=== PATIENT | female | born 1940 | race Caucasian/White ===

== ENCOUNTER 2016-11-03 13:17 | Day surgery (SDC) | payer MEDICARE ==
[2016-11-03 13:35] VITALS: PULSE 68; RESP 20; TEMP 97.7
[2016-11-03 15:40] VITALS: BP 120/57
--- NOTE | 2016-11-07 12:29 | IR ---
PICC LINE PLACEMENT: HISTORY: Infection requiring long-term antibiotic therapy PROCEDURE: Ultrasound and fluoroscopic guidance of PICC line placement. COMPLICATIONS: None ANESTHESIA: 1. 1% Lidocaine locally. FINDINGS/TECHNIQUE: The procedure was explained to the patient. The risks, complications, benefits and alternatives were discussed and any questions were answered. Informed consent was obtained. The patient was placed supine on the fluoroscopic table and prepped and draped in the usual sterile [facility] ion. Utilizing a 21 gauge needle and sonographic and fluoroscopic guidance, access in the vein was achieved and there is placement of a 0.018 guidewire. The vein is patent. A 4-F sheath was placed o juana the guidewire. The guidewire and dilator were removed and a 4-F. PICC line was placed through th e sheath with the tip at the level of the SVC. The sheath was removed, the catheter was flushed and sutured into position. The patient was stable throughout the procedure and remained stable upon disc harge from the Department of Radiology. The vein puncture was patent under ultrasound. A obrien scale image was obtained to document patency of the vein punctured. All elements of the maximal barrier technique were utilized. FLUOROSCOPY TIME: 0.3 minute IMPRESSION: Successful PICC line placement under ultrasound and fluoroscopic guidance.
== END 2016-11-03 14:45 | disposition home or self-care (01) ==
LOC: EDSEX 13:17 → CATHCVL 13:17
PROVIDERS: ATTEND Radiology Diagnostic Radiology
DX: A35 Other tetanus (principal)
CPT/HCPCS: 36569; 76937; 77001; C1751; C1769

== ENCOUNTER → 2017-01-25 | Outpatient (CLI) | payer MEDICARE ==
[2017-01-25 14:35] LABS: Appearance,Urine Clear (Clear); Bacteria,Urine Rare /hpf; Bilirubin,Urine Negative (Negative); Glucose,Urine (UA) Negative (Negative); Ketones,Urine Negative (Negative); Leukocyte Esterase,Urine Moderate (Negative); Mucus,Urine Rare /hpf; Nitrite,Urine Negative (Negative); PH, Urine 5.5 (5.0-8.0); Particle Count 1288; Protein,Urine Negative (Negative); RBC,Urine 1 /hpf (0-5); Specific Gravity,Urine 1.011 (1.001-1.035); Squamous Epithelial Cell,Urine 2 /hpf (0-4); UA Billing (MACRO vs. MICRO) MICRO; Urobilinogen,Urine <2.0 mg/dL (<2.0); WBC,Urine 6 /hpf (0-5)
[2017-01-25 14:47] LABS: CH 28.2; CHCM 34.6; HDW 2.82; HGB 15.1 gm/dL (11.4-16.0); MCH 28.7 pg (25.0-35.0); MCHC 35.1 g/dL (31.0-37.0); MCV 81.9 fL (80.0-100.0); Mean Platelet Volume 6.4; RBC 5.25 m/uL (3.80-5.40); RDW 13.7 % (11.5-15.5); WBC 9.2 k/uL (3.8-10.6)
[2017-01-25 14:50] LABS: INR 1.1 (<1.1); Partial Thromboplastin Time 22.8 sec (22.0-30.0); Prothrombin Time 10.6 sec (9.0-12.0)
[2017-01-25 14:55] LABS: ALT 44 U/L (9-52); AST 48 U/L (14-36); Alkaline Phosphatase 99 U/L (38-126); Anion Gap 10 mmol/L; Blood Urea Nitrogen 27 mg/dL (7-17); Calcium 10.4 mg/dL (8.4-10.2); Carbon Dioxide 25 mmol/L (22-30); Chloride 106 mmol/L (98-107); Glucose 90 mg/dL (74-99); Non-African American GFR(MDRD) >60 (>60 ml/min/1.73 sqM); Potassium 4.3 mmol/L (3.5-5.1); Sodium 141 mmol/L (137-145); Total Bilirubin 0.9 mg/dL (0.2-1.3); Total Protein 7.5 g/dL (6.3-8.2)
== END | disposition home or self-care (01) ==
LOC: LABPAT 14:00
PROVIDERS: ATTEND Orthopaedic Surgery
DX: Z01.812 Encounter for preprocedural laboratory examination (principal)
CPT/HCPCS: 80053; 81001; 85027; 85610; 85730; 87070

== ENCOUNTER 2017-02-14 06:41 | Inpatient (IN) | payer MEDICARE ==
[2017-02-13 08:38] VITALS: BMI 34.6
[~2017-02-14 06:41] MED LIST: ACETAMINOPHEN TAB 500 MG TAB PO ONE; DEXAMETHASONE SOD PHOSPHATE 10 MG/ML 1 ML VIAL IV ONE; HYDROmorphone 1 MG/ML 1 ML SYRINGE IVP PRN; MELOXICAM 7.5 MG TAB PO ONE; MIDAZOLAM 2 MG/2 ML VIAL IV PRN; ONDANSETRON 4 MG/2 ML VIAL IVP ONE; ROPIVACAINE 246.25 MG, EPINEPHrine 0.5 MG, KETOROLAC 30 MG, cloNIDine HCL/PF 80 MCG, WA... MISCELLANE ONE; TRANEXAMIC ACID 1,000 MG in SODIUM CHLORIDE 0.9% 100 ML IVPB ONE
[2017-02-14] MEDS: LACTATED RINGERS 1,000 ML IV SCH (07:12)
[2017-02-14] MEDS ORDERED: LIDOCAINE 1% 20 ML VIAL (10MG/ML) FOR IV START INTRADERMA ONE (07:13)
[2017-02-14] MEDS ORDERED: MIDAZOLAM 2 MG/2 ML VIAL IVP ONE (08:11)
[2017-02-14] MEDS ORDERED: fentaNYL (PF) 50 MCG/ML 2 ML AMP ONE (08:46)
[2017-02-14] MEDS: ceFAZolin 2 GM in SODIUM CHLORIDE 0.9% 100 ML IVPB ONE ×2 (08:46→09:05)
[2017-02-14] MEDS ORDERED: HYDROmorphone (PF) 1 MG/ML ONE (08:46)
[2017-02-14] MEDS ORDERED: PROPOFOL 10 MG/ML 20 ML VIAL IV ONE (08:46)
[2017-02-14] MEDS ORDERED: SODIUM CHLORIDE 0.9% 100 ML BAG ONE (08:46)
[2017-02-14] MEDS ORDERED: SUCCINYLCHOLINE CHLORIDE 100 MG/5 ML SYR IV ONE (08:46)
[2017-02-14] MEDS ORDERED: TRANEXAMIC ACID 1,000 MG/10 ML VIAL ONE (08:46)
[2017-02-14] MEDS ORDERED: LIDOCAINE 1% INJ 10MG/ML (20 ML MDV) ONE (08:46)
[2017-02-14] MEDS ORDERED: MIDAZOLAM 2 MG/2 ML VIAL ONE (08:46)
[2017-02-14] MEDS ORDERED: hydrOXYzine PAMOATE 25 MG CAP PO PRN (08:58)
[2017-02-14] MEDS ORDERED: DIAZEPAM 5 MG TAB PO PRN ×2 (08:58)
[2017-02-14] MEDS ORDERED: ONDANSETRON 4 MG/2 ML VIAL IVP PRN (08:58)
[2017-02-14] MEDS ORDERED: HYDROmorphone 1 MG/ML 1 ML SYRINGE IVP PRN ×3 (08:58)
[2017-02-14] MEDS ORDERED: NA PHOS,M-B/NA PHOS,DI-BA 133 ML ENEMA RECTAL PRN (08:58)
[2017-02-14] MEDS ORDERED: NALOXONE 0.4 MG/ML 1 ML VIAL IV PRN (08:58)
[2017-02-14] MEDS ORDERED: MAGNESIUM HYDROXIDE 2,400 MG/10 ML CUP PO PRN (08:58)
[2017-02-14] MEDS ORDERED: BISACODYL 10 MG SUPP RECTAL PRN (08:58)
[2017-02-14] MEDS ORDERED: HYDROcodone/APAP 5-325MG 1 EACH TAB PO PRN (08:58)
[2017-02-14] MEDS ORDERED: LACTATED RINGERS 1,000 ML IV ONE (09:31)
[2017-02-14] MEDS ORDERED: ceFAZolin 3,000 MG in SODIUM CHLORIDE 0.9% IRRIGATIO 3,000 ML IRRIGATION ONE (09:44)
[2017-02-14] MEDS ORDERED: ROPIVACAINE 1,100 MG, SODIUM CHLORIDE 0.9% 330 ML MISCELLANE PRN ×2 (11:18)
--- NOTE | 2017-02-14 11:26 | XR ---
EXAMINATION TYPE: XR knee limited LT DATE OF EXAM: 02/14/2017 11:15 AM COMPARISON: NONE TECHNIQUE: Two views submitted HISTORY: Post op FINDINGS: There is a prosthetic knee in near anatomic alignment. There is soft tissue edema and emphysema. IMPRESSION: 1. Postoperative change. Appears in near-anatomic alignment
[2017-02-14 11:46] VITALS: RESP 16
[2017-02-14] MEDS: SODIUM CHLORIDE 0.9% 1,000 ML IV SCH (13:06)
--- NOTE | 2017-02-14 15:06 | P.OP ---
Date of Procedure: 02/14/17 Preoperative Diagnosis: Severe osteoarthritis left knee Postoperative Diagnosis: Severe osteoarthritis left knee Procedure(s) Performed: Left total knee arthroplasty Implants: Morton and Nephew Oxinium femoral component size 6, left Morton & Nephew Karla II left nonporous tibial baseplate size 5 Morton & Nephew size 9 mm Legion XLPE dished articular insert, size 5-6 Morton & Nephew Karla II resurfacing patellar component, 32 mm All components were cemented using Misael bone cement.. The articulation is ceramic on polyethylene. Anesthesia: GETA Surgeon: Mohinder Jung Medical Records Supervisor #1: Arielle Brambila Medical Records Supervisor #2: Bridgett Trujillo Estimated Blood Loss (ml): 50 Pathology: other (Bone and cartilage) Condition: stable Disposition: PACU Indications for Procedure: After failure of conservative treatment we discussed the surgical and nonsurgical treatment options at length. Patient wishes to proceed with a total knee arthroplasty. Complications specific to this procedure were discussed at length, including but not limited to infection, bleeding, stiffness , and nerve injury. Patient is aware of all these complications and informed consent was obtained Operative Findings: The operative findings are consistent with severe osteoarthritis of the left knee Description of Procedure: Patient was seen in the preoperative area consent was reviewed and operative site was marked with a skin marker. An adductor canal pain catheter was placed by anesthesia in the preoperative area. Patient was then brought to the operating room and given preoperative antibiotics intravenously. A spinal anesthetic was administered by the anesthesia department. A tourniquet was placed on the upper thigh and the lower extremity was prepped and draped in usual sterile fashion. A gram of transexamic acid was given. A universal timeout was then performed which confirmed the patient's name, surgical site, ALLERGIES, and consent. The lower extremity was then exsanguinated and tourniquet was inflated to 250 mmHg. A standard and anterior midline approach to the knee was performed. The skin and subcutaneous tissue was dissected down to the patellar tendon. A medial parapatellar arthrotomy was then performed. The knee was then extended, the patellar was everted, and the knee was again flexed. Anterior horns of both menisci were excised, and a release was performed to the posterior medial aspect of the knee. On gross visual inspection, there was complete loss of articular cartilage in the medial and patellofemoral joint spaces. There was also significant cartilage damage in the lateral compartment. There were multiple periarticular osteophytes which were then removed with a Ronguer. The femoral canal was then opened with the appropriate drill, and the intramedullary femoral cutting guide was then placed and set for 4 of valgus. The distal femoral cutting block was then pinned in place, and the distal femur was then cut. The cutting block was then removed and the cut was checked for flatness. Next, the sizing guide was then placed and set for 3 external rotation based off of the epicondylar axis and Whitesides line. After the femur was sized, the appropriate 4-in-1 cutting block was then pinned in place. The anterior condyles were cut without notching. The posterior and chamfer cuts were performed while protecting the collateral ligaments. The cutting block was then removed, and the femoral canal was plugged with autologous bone. Attention was then directed to the tibia. The remaining ACL was removed with a Ronguer, and the tibia was then gently subluxed forward with a large bent knee retractor. Any remaining menisci was excised. The posterior lateral corner was cauterized in order to cauterize the lateral geniculate artery. The extra medullary tibial cutting guide was then placed, set for the appropriate rotation , slope, and depth of resection. The proximal tibia cutting guide was then pinned in place. Proximal tibia was then cut and sized. Next trials were then placed with the appropriate-sized insert. The knee was able to fully extend and flex to 130 and was stable throughout all range of motion. The knee was then extended, patella everted. Patella was then measured, and then using an osteotomy guide, the patella was cut at the appropriate level. The patella was then measured and drilled and the patella trial was then placed. The knee was then taken through range of motion with the patella trial and the patella tracked normally. The knee was then extended patella trial was then removed and the patella was everted. Knee was then flexed and lug holes were drilled through the femoral trial and the femoral trial was then removed. The tibial was then exposed, and the tibial broach guide was then pinned in place after it was set for the appropriate rotation to allow for the most coverage without overhang. The tibia was then reamed and broached. The cut surfaces of bone were then irrigated with pulsatile lavage. The posterior structures were injected with the ropivacaine solution. The knee was also irrigated with Irrisept solution. The components were then opened, the cement was mixed, and the components were then cemented in place. The cement was allowed to harden with the knee in full extension. While the cement was hardening, the remaining soft tissues were then injected with a ropivacaine solution, which consisted of 246.25 mg of ropivacaine, 0.5 mg of epinephrine, 30 mg of Toradol, 80 g of clonidine, and 48.45 mL of sterile water, for a total of 100 mL of fluid injected. After the cemented hardened. The tourniquet was released, and hemostasis was obtained. A second gram of transexamic acid was given. The knee was again irrigated. The knee was again taken through range of motion and found to be stable throughout all range of motion of 0-130 , and the patella tracked normally. The fascia was then closed with #2 strata fix suture. The subcutaneous tissue was closed with 3-0 Vicryl and 3-0 strata fix. Dermabond tape was used for the skin and placed with the knee in flexion. The patient was placed in a sterile dressing. Patient was then transferred to recovery room in stable condition. The assistant passenger locomotive engineer ANASTACIA Loza was required due the complexity surgery and the need for a skilled surgical scheduler. She assisted in positioning, draping , retraction, and closure of the wound.
[2017-02-14] MEDS: HYDROcodone/APAP 5-325MG 1 EACH TAB PO PRN (18:15)
[2017-02-14] MEDS: ceFAZolin 2 GM in SODIUM CHLORIDE 0.9% 100 ML IVPB SCH ×2 (19:05→23:29)
--- NOTE | 2017-02-14 19:28 | P.ONQ ---
Anesthesiology Proc Note - PNB - Peripheral Nerve Block Performed Left Adductor Canal Indication: Acute Post-Operative Pain, Dx/Pain Location (Left Knee) Specifically requested for management of pain by : Mohinder Jung Sedation Type: Sedate with meaningful contact maintained Preparation: Sterile Prep Position: Supine Catheter: Indwelling Needle Types: On-Q Needle Size: 100mm (4") Needle Gauge: 21 Injectate: 0.5% Ropivacaine (see comment for volume) (30 cc) Blood Aspirated: No Pain Paresthesia on Injection Noted: No Resistance on Injection: Normal Events: Uneventful and Well Tolerated
[2017-02-14] MEDS ORDERED: SENNOSIDES-DOCUSATE SODIUM 1 EACH TAB PO SCH (21:00)
[2017-02-14] MEDS ORDERED: ATORVASTATIN 20 MG TAB PO SCH (21:00)
[2017-02-14] MEDS: ASPIRIN 325 MG TAB PO SCH (21:06)
[2017-02-15] MEDS: LACTATED RINGERS 1,000 ML IV SCH (00:31)
[2017-02-15 02:25] VITALS: TEMP 97.4
[2017-02-15] MEDS: SODIUM CHLORIDE 0.9% 1,000 ML IV SCH (05:30)
[2017-02-15] MEDS: HYDROcodone/APAP 5-325MG 1 EACH TAB PO PRN ×2 (05:31→12:36)
--- NOTE | 2017-02-15 05:32 | CONS ---
DATE OF CONSULTATION: 02/14/2017 REASON FOR CONSULTATION: Medical management requested by Dr. Jung. CONSULTATION: This is a pleasant 76-year-old patient of Dr. Guzman. Chronic stable medical conditions include hyperlipidemia, hypertension, osteoarthritis of multiple joints, hypothyroid. Patient has undergone a left total knee arthroplasty. Some pain is present. No nausea, vomiting. No chest pain. Sitting up comfortably. REVIEW OF SYSTEMS: CONSTITUTIONAL: None. HEENT: None. RESPIRATORY: None. CARDIOVASCULAR: None. GASTROINTESTINAL: None. GENITOURINARY: None. MUSCULOSKELETAL: Pain in the joints. DERMATOLOGICAL: None. HEMATOLOGIC: None. LYMPHATIC: None. PSYCHIATRY: None. NEUROLOGICAL: None. Past history of hyperlipidemia, hypertension, osteoarthritis, hypothyroid. PAST SURGICAL HISTORY: Joint replacement, tonsillectomy, I&D right middle finger, right hip replacement, fatty tumor removed from the back. SOCIAL HISTORY: No smoking. Alcohol rarely. . FAMILY HISTORY: Reviewed, noncontributory to presentation. HOME MEDICATIONS: 1. Maxzide 75/50 one tablet p.o. daily. 2. Naproxen 220 to 440 mg q.6 p.r.n. 3. Zestril 20 mg p.o. daily. 4. Synthroid 112 mcg p.o. daily. 5. Lipitor 20 mg p.o. q.h.s. 6. Aspirin 325 mg p.o. q.h.s. 7. Tylenol. Allergies to TETANUS AND DIPHTHERIA TOXOIDS. On examination, temperature 97.4, pulse 76, respirations 16, blood pressure 112/55, pulse ox 98%. GENERAL APPEARANCE: Well built, BMI of 34.6. Sitting up, not in distress. EYES: Pupils equal. Conjunctivae normal. HEENT: Oral cavity normal. NECK: JVD not raised. Mass not palpable. RESPIRATORY: Effort normal. LUNGS: Fair air entry. CARDIOVASCULAR: First and second sounds normal. No edema. ABDOMEN: Soft, nontender. Liver and spleen not palpable. PSYCHIATRY: Alert and oriented x3. Mood and affect normal. NEUROLOGICAL: Pupils equal. Cranial grossly intact. INVESTIGATIONS: None from today. ASSESSMENT: 1. Left total knee arthroplasty. 2. Hyperlipidemia. 3. Essential hypertension. 4. Primary osteoarthritis of multiple joints. 5. Hypothyroid. PLAN: Home medications will be resumed. Patient ( ) DVT prophylaxis. Care was discussed with the patient. Thank you, Dr. Jung.
[2017-02-15] MEDS ORDERED: LEVOTHYROXINE 112 MCG TAB PO SCH (06:30)
[2017-02-15 07:34] VITALS: PULSE 63
[2017-02-15 07:58] VITALS: BP 118/68
[2017-02-15] MEDS: ASPIRIN 325 MG TAB PO SCH (08:00)
[2017-02-15 08:33] LABS: Basophils % (A) 0 %; CH 28.5; CHCM 33.9; Eosinophils % (A) 0 %; HCT 32.6 % (34.0-46.0); HDW 2.82; Luc # (Auto) 0.03; Luc % (Auto) 0; Lymphocytes # (A) 0.7 k/uL (1.0-4.8); Lymphocytes % (A) 8 %; MCH 28.7 pg (25.0-35.0); MCV 84.3 fL (80.0-100.0); Mean Platelet Volume 6.1; Monocytes # (A) 0.5 k/uL (0-1.0); Monocytes % (A) 6 %; Neutrophils # (A) 7.1 k/uL (1.3-7.7); Neutrophils % (A) 86 %; RBC 3.87 m/uL (3.80-5.40); RDW 13.9 % (11.5-15.5); WBC 8.3 k/uL (3.8-10.6); WBC (Perox) 8.57
[2017-02-15 08:42] LABS: HGB 11.1 gm/dL (11.4-16.0)
--- NOTE | 2017-02-15 08:59 | P.DS ---
Providers Date of admission: 02/14/17 06:41 Expected date of discharge: 02/15/17 Attending physician: Mohinder Jung Consults: 02/14/17 08:58 Consult Physician Routine Consulting Provider: Reid Baum Consult Reason/Comments: medical management Do you want consulting provider notified?: Yes Primary care physician: Bita Guzman - Discharge Diagnosis(es) (1) Primary osteoarthritis of left knee Current Visit: Yes Status: Acute (2) Status post left knee replacement Current Visit: Yes Status: Acute Hospital Course: This is a pleasant 76-year-old female last seen in our office with complaints of left knee pain. Patient has known history of degenerative arthritis of the left knee and presented to discuss options. After discussion and consideration , the patient elected to proceed with a left total knee arthroplasty. Patient was seen preoperatively, and medically cleared for surgery by her primary care physician. Patient was admitted to [facility] and underwent left total knee arthroplasty with Dr. Mohinder Jnug. The procedure was performed without complications or sequelae. The patient is seen and evaluated at bedside today with Dr. Jung. Pain is well-controlled. Patient has no new complaints today. Vital signs are stable. Dressing is clean dry and intact. Incision looks fine with no erythema or active drainage. Calf is soft and nontender. Patient has full foot and ankle motion without difficulty. Patient's left lower extremity is neurovascularly intact. The patient is orthopedically stable for discharge today. Pertinent Studies: Laboratory Tests 02/15/17 07:33 WBC 8.3 RBC 3.87 Hgb 11.1 L D Hct 32.6 L Patient Condition at Discharge: Good Plan - Discharge Summary New Discharge Prescriptions: Aspirin 325 mg PO BID #60 tab Hydrocodone/Acetaminophen [[place]ake[place]y 5-325] 1 - 2 each PO Q6HR PRN #90 tab PRN Reason: Pain Sennosides-Docusate Sodium [Senokot-S] 2 tab PO DAILY #60 tablet Discharge Medication List Aspirin 325 mg PO HS 11/02/16 [History] Atorvastatin [Lipitor] 20 mg PO HS 11/02/16 [History] Levothyroxine Sodium [Synthroid] 112 mcg PO QAM 11/02/16 [History] Lisinopril [Zestril] 20 mg PO QAM 11/02/16 [History] Naproxen Sodium [Aleve] 220 - 440 mg PO Q6H PRN 11/02/16 [History] Triamterene-Hctz 75-50Mg [Maxzide 75-50] 1 tab PO QAM 11/02/16 [History] Acetaminophen [Tylenol] 325 mg PO BID PRN 02/13/17 [History] Aspirin 325 mg PO BID #60 tab 02/15/17 [Rx] Hydrocodone/Acetaminophen [[place]y 5-325] 1 - 2 each PO Q6HR PRN #90 tab 02/15/17 [Rx] Sennosides-Docusate Sodium [Senokot-S] 2 tab PO DAILY #60 tablet 02/15/17 [Rx] Follow up Appointment(s)/Referral(s): Mohinder Jung DO [Doctor of Osteopathic Medicine] - 2 Weeks Ambulatory/Diagnostic Orders: Continuous Passive Motion (CPM) Machine [DME.AMB1] Location: Determined By Patient Activity/Diet/Wound Care/Special Instructions: Weightbearing as tolerated with a walker CPM daily Daily dressing changes, keep incision clean and dry [facility] with questions or concerns [phone] Discharge Disposition: HOME WITH HOME HEALTH SERVICES
[2017-02-15] MEDS ORDERED: MELOXICAM 7.5 MG TAB PO SCH (09:00)
[2017-02-15] MEDS ORDERED: TRIAMTERENE-HCTZ 75-50MG 1 EACH TAB PO SCH (09:00)
[2017-02-15] MEDS ORDERED: LISINOPRIL 20 MG TAB PO SCH (09:00)
--- NOTE | 2017-02-15 09:39 | P.PN ---
Progress Note - Text Postoperative day # 1 status post total knee arthroplasty, on adductor canal perineural catheter placed for postoperative analgesia. Ropivacaine 0.2% 8 mL per hour through ON-Q pump continuous infusion. Pain is well controlled. On visual analog scale 2/10 Patient is taking PRN oral pain medications. Catheter site: Looks Ok. There is no erythema or tenderness. Continue with the current pain management plan and will follow.
--- NOTE | 2017-02-15 12:44 | PN ---
DATE OF SERVICE: 02/15/2017 PRESENTING COMPLAINT: Left total knee arthroplasty. INTERVAL HISTORY: Patient is status post left knee surgery doing well. Pain is controlled. No nausea, vomiting. No chest pain, tolerating a diet. Did work with therapy. Review of systems done for constitutional, cardiovascular, GI, pulmonary, musculoskeletal; relevant findings as above. Current medications are reviewed. On examination, temperature 97.4, pulse 60, respirations 16, blood pressure 110/49, pulse ox 95% on room air. GENERAL APPEARANCE: Sitting up, comfortable. EYES: Pupils equal. Conjunctivae normal. NECK: JVD not raised. Mass not palpable. RESPIRATORY: Effort normal. Lungs are clear. CARDIOVASCULAR: First and second sounds normal. No edema. ABDOMEN: Soft, nontender. Liver and spleen not palpable. PSYCHIATRY: Alert and oriented times three. Mood and affect normal. INVESTIGATIONS: Hemoglobin 11.1. White count 8.3. ASSESSMENT: 1. Left total knee arthroplasty. 2. Hyperlipidemia. 3. Essential hypertension currently blood pressure is running a bit low. 4. Primary osteoarthritis in multiple joints. 5. Hypothyroidism. PLAN: Continue current medication and treatment plan. We can hold off patient's diuretics for right now. Can even hold off patient's Zestril for right now. Will follow.
== END 2017-02-15 13:30 | disposition home health service (06) | DRG 470 ==
LOC: 2ORMAIN 06:41 → 3SUR 10:50
PROVIDERS: ADMIT Orthopaedic Surgery; ATTEND Orthopaedic Surgery
PROC: 0SRD0J9 Replacement of Left Knee Joint with Synthetic Substitute, Cemented, Open Approach (ICD-10-PCS; principal; 2017-02-14 08:30)
DX: M17.12 Unilateral primary osteoarthritis, left knee (principal); I10 Essential (primary) hypertension; E03.9 Hypothyroidism, unspecified; E78.5 Hyperlipidemia, unspecified; M19.91 Primary osteoarthritis, unspecified site; Z88.7 Allergy status to serum and vaccine; Z96.641 Presence of right artificial hip joint; Z79.82 Long term (current) use of aspirin; Z79.899 Other long term (current) drug therapy
CPT/HCPCS: 85025; 88300

== ENCOUNTER → 2017-05-30 | Outpatient (CLI) | payer MEDICARE ==
[2017-05-30 14:05] LABS: Basophils # (A) 0.1 k/uL (0-0.2); Basophils % (A) 1 %; CH 26.7; Eosinophils # (A) 0.3 k/uL (0-0.7); Eosinophils % (A) 4 %; HDW 2.97; HGB 13.3 gm/dL (11.4-16.0); Luc # (Auto) 0.21; Luc % (Auto) 3; Lymphocytes # (A) 2.6 k/uL (1.0-4.8); Lymphocytes % (A) 36 %; MCH 27.1 pg (25.0-35.0); MCHC 33.4 g/dL (31.0-37.0); MCV 81.2 fL (80.0-100.0); Mean Platelet Volume 6.6; Monocytes # (A) 0.3 k/uL (0-1.0); Monocytes % (A) 4 %; Neutrophils # (A) 3.8 k/uL (1.3-7.7); Neutrophils % (A) 53 %; RBC 4.92 m/uL (3.80-5.40); RDW 12.9 % (11.5-15.5); WBC 7.2 k/uL (3.8-10.6); WBC (Perox) 7.93
[2017-05-30 14:08] LABS: Prothrombin Time 10.4 sec (9.0-12.0)
[2017-05-30 14:17] LABS: ALT 30 U/L (9-52); AST 33 U/L (14-36); Alkaline Phosphatase 88 U/L (38-126); Anion Gap 8 mmol/L; Blood Urea Nitrogen 29 mg/dL (7-17); Calcium 10.3 mg/dL (8.4-10.2); Carbon Dioxide 26 mmol/L (22-30); Chloride 107 mmol/L (98-107); Glucose 95 mg/dL (74-99); Non-African American GFR(MDRD) 59 (>60 ml/min/1.73 sqM); Potassium 4.8 mmol/L (3.5-5.1); Sodium 141 mmol/L (137-145); Total Bilirubin 0.5 mg/dL (0.2-1.3)
[2017-05-30 14:22] LABS: Amorphous Sediment,Urine Rare /hpf; Appearance,Urine Clear (Clear); Bacteria,Urine Rare /hpf; Bilirubin,Urine Negative (Negative); Glucose,Urine (UA) Negative (Negative); Ketones,Urine Negative (Negative); Leukocyte Esterase,Urine Small (Negative); Mucus,Urine Rare /hpf; Nitrite,Urine Negative (Negative); PH, Urine 5.5 (5.0-8.0); Particle Count 2142; Protein,Urine Negative (Negative); RBC,Urine 1 /hpf (0-5); Specific Gravity,Urine 1.014 (1.001-1.035); Squamous Epithelial Cell,Urine <1 /hpf (0-4); UA Billing (MACRO vs. MICRO) MICRO; Urobilinogen,Urine <2.0 mg/dL (<2.0); WBC,Urine 2 /hpf (0-5)
== END | disposition home or self-care (01) ==
LOC: LABPAT 13:01
PROVIDERS: ATTEND Orthopaedic Surgery
DX: Z01.812 Encounter for preprocedural laboratory examination (principal)
CPT/HCPCS: 80053; 81001; 83880; 84443; 85025; 85610; 85730; 87070

== ENCOUNTER → 2017-06-02 | Outpatient (CLI) | payer MEDICARE ==
[~2017-06-02] MED LIST changes: -ACETAMINOPHEN TAB 500 MG TAB PO ONE; -DEXAMETHASONE SOD PHOSPHATE 10 MG/ML 1 ML VIAL IV ONE; -HYDROmorphone 1 MG/ML 1 ML SYRINGE IVP PRN; -MELOXICAM 7.5 MG TAB PO ONE; -MIDAZOLAM 2 MG/2 ML VIAL IV PRN; -ONDANSETRON 4 MG/2 ML VIAL IVP ONE; +REGADENOSON 0.4 MG/5 ML SYRINGE IV ONE; -ROPIVACAINE 246.25 MG, EPINEPHrine 0.5 MG, KETOROLAC 30 MG, cloNIDine HCL/PF 80 MCG, WA... MISCELLANE ONE; -TRANEXAMIC ACID 1,000 MG in SODIUM CHLORIDE 0.9% 100 ML IVPB ONE
--- NOTE | 2017-06-02 11:19 | NM ---
EXAMINATION TYPE: NM stress lexiscan cardiolite DATE OF EXAM: 06/02/2017 COMPARISON: NONE HISTORY: EKG changes TECHNIQUE: After the intravenous administration of 10.34 mCi Tc 99m Sestamibi - Cardiolite resting S PECT images acquired 45 minutes post injection. The patient received 0.4mg Lexiscan, 28.5 mCi Tc 99m Sestamibi - Stress images obtained [address] injection FINDINGS: Review of stress and rest SPECT images demonstrates no distinct perfusion abnormality. Gated analysi s shows normal wall motion with an estimated left ventricular ejection fraction of 67 %. IMPRESSION: No scintigraphic evidence for reversible ischemia.
--- NOTE | 2017-06-09 09:18 | EST ---
EXERCISE STRESS DATE OF SERVICE: 06/02/2017. HISTORY: Ms. Sierra is a 77 year old female with history of hypertension, hypercholesterolemia being evaluated for cardiac status. Maximum Heart Rate: 80 Maximum Blood Pressure: 146/85 85% PHMR: 122 100$ PMHR: 143 Baseline EKG showed sinus rhythm with normal MT interval and QRS duration. Mild non-ST elevation abnormalities are noted. Blood pressure at rest is 135/82 with a pulse rate of 64. A standard dose of Lexiscan was infused. EKGs taken during and after infusion did not reveal any changes to suggest ischemia. FINAL IMPRESSION: 1. Negative Lexiscan stress test. 2. Report on the nuclear images to be given by the radiologist. MMODL / IJN: [id number] /
== END ==
LOC: RADNMMAIN 07:49
PROVIDERS: ATTEND Family Medicine
DX: Z01.810 Encounter for preprocedural cardiovascular examination (principal); R94.31 Abnormal electrocardiogram [ECG] [EKG]; Z82.49 Family history of ischemic heart disease and other diseases of the circulatory system
CPT/HCPCS: 93017; 78452; A9500; J2785

== ENCOUNTER 2017-06-13 11:42 | Inpatient (IN) | payer MEDICARE ==
[2017-06-01 14:58] VITALS: BMI 34.6
[~2017-06-13 11:42] MED LIST changes: +ACETAMINOPHEN TAB 500 MG TAB PO ONE; +DEXAMETHASONE SOD PHOSPHATE 10 MG/ML 1 ML VIAL IV ONE; +HYDROmorphone 1 MG/ML 1 ML SYRINGE IVP PRN; +MELOXICAM 7.5 MG TAB PO ONE; +MIDAZOLAM 2 MG/2 ML VIAL IV PRN; +ONDANSETRON 4 MG/2 ML VIAL IVP ONE; -REGADENOSON 0.4 MG/5 ML SYRINGE IV ONE; +TRANEXAMIC ACID 1,000 MG in SODIUM CHLORIDE 0.9% 100 ML IVPB ONE; +ceFAZolin 2 GM in SODIUM CHLORIDE 0.9% 100 ML IVPB ONE
[2017-06-13] MEDS: LACTATED RINGERS 1,000 ML IV SCH (13:11)
[2017-06-13] MEDS ORDERED: LIDOCAINE 1% 20 ML VIAL (10MG/ML) FOR IV START INTRADERMA ONE (13:12)
[2017-06-13] MEDS ORDERED: SODIUM CHLORIDE 0.9% 100 ML BAG ONE (13:39)
[2017-06-13] MEDS ORDERED: ePHEDrine SULFATE/0.9% NACL/PF 50 MG/5 ML SYRINGE IV ONE (13:39)
[2017-06-13] MEDS ORDERED: TRANEXAMIC ACID 1,000 MG/10 ML VIAL ONE (13:39)
[2017-06-13] MEDS ORDERED: LIDOCAINE 1% INJ 10MG/ML (20 ML MDV) ONE (13:39)
[2017-06-13] MEDS ORDERED: ceFAZolin 3,000 MG in SODIUM CHLORIDE 0.9% IRRIGATIO 3,000 ML IRRIGATION ONE (13:39)
[2017-06-13] MEDS ORDERED: fentaNYL (PF) 50 MCG/ML 2 ML AMP ONE (13:39)
[2017-06-13] MEDS ORDERED: PROPOFOL 10 MG/ML 20 ML VIAL IV ONE (13:39)
[2017-06-13] MEDS ORDERED: SUCCINYLCHOLINE CHLORIDE 100 MG/5 ML SYR IV ONE (13:39)
[2017-06-13] MEDS ORDERED: HYDROmorphone (PF) 1 MG/ML ONE (13:39)
[2017-06-13] MEDS: ROPIVACAINE 246.25 MG, EPINEPHrine 0.5 MG, KETOROLAC 30 MG, cloNIDine HCL/PF 80 MCG, WA... MISCELLANE ONE ×10 (14:06→14:41)
[2017-06-13] MEDS ORDERED: ROPIVACAINE 1,100 MG, SODIUM CHLORIDE 0.9% 330 ML MISCELLANE PRN ×2 (14:37)
--- NOTE | 2017-06-13 14:38 | P.ONQ ---
Anesthesiology Proc Note - PNB - Peripheral Nerve Block Performed Right Adductor Canal Indication: Acute Post-Operative Pain, Dx/Pain Location, Requested by physician (Dr Mohinder Jung) Sedation Type: Sedate with meaningful contact maintained Preparation: Sterile Dressing Position: Supine Catheter: Indwelling Needle Types: Other (see comment) (Juan Carlos) Needle Size: 100mm (4") Needle Gauge: 18 Technique: Ultrasound Injectate: 0.5% Ropivacaine (see comment for volume) (20cc) Blood Aspirated: No Pain Paresthesia on Injection Noted: No Resistance on Injection: Normal Events: Uneventful and Well Tolerated
[2017-06-13] MEDS ORDERED: LACTATED RINGERS 1,000 ML IV ONE (15:01)
--- NOTE | 2017-06-13 15:07 | P.OP ---
Date of Procedure: 06/13/17 Preoperative Diagnosis: Severe osteoarthritis right knee Postoperative Diagnosis: Severe osteoarthritis right knee Procedure(s) Performed: Right total knee arthroplasty Implants: Morton and Nephew Oxinium femoral component size 5, right Morton & Nephew Karla II right nonporous tibial baseplate size 4 Morton [employer] Nephew size 11 mm Legion XLPE dished articular insert, size 3-4 Morton & Nephew Karla II resurfacing patellar component, 32 mm All components were cemented using Misael bone cement.. The articulation is ceramic on polyethylene. Anesthesia: spinal Surgeon: Mohinder Jung Med Admin #1: Bridgett Fang Estimated Blood Loss (ml): 50 Pathology: other (Bone and cartilage) Condition: stable Disposition: PACU Indications for Procedure: After failure of conservative treatment we discussed the surgical and nonsurgical treatment options at length. Patient wishes to proceed with a total knee arthroplasty. Complications specific to this procedure were discussed at length, including but not limited to infection, bleeding, stiffness , and nerve injury. Patient is aware of all these complications and informed consent was obtained Operative Findings: The operative findings are consistent with severe osteoarthritis of the right knee Description of Procedure: Patient was seen in the preoperative area consent was reviewed and operative site was marked with a skin marker. An adductor canal pain catheter was placed by anesthesia in the preoperative area. Patient was then brought to the operating room and given preoperative antibiotics intravenously. A general anesthetic was administered by the anesthesia department. A tourniquet was placed on the upper thigh and the lower extremity was prepped and draped in usual sterile fashion. A gram of transexamic acid was given. A universal timeout was then performed which confirmed the patient's name, surgical site, ALLERGIES, and consent. The lower extremity was then exsanguinated and tourniquet was inflated to 250 mmHg. A standard and anterior midline approach to the knee was performed. The skin and subcutaneous tissue was dissected down to the patellar tendon. A medial parapatellar arthrotomy was then performed. The knee was then extended, the patellar was everted, and the knee was again flexed. Anterior horns of both menisci were excised, and a release was performed to the posterior medial aspect of the knee. On gross visual inspection, there was complete loss of articular cartilage in the medial and patellofemoral joint spaces. There was also significant cartilage damage in the lateral compartment. There were multiple periarticular osteophytes which were then removed with a Ronguer. The femoral canal was then opened with the appropriate drill, and the intramedullary femoral cutting guide was then placed and set for 4 of valgus. The distal femoral cutting block was then pinned in place, and the distal femur was then cut. The cutting block was then removed and the cut was checked for flatness. Next, the sizing guide was then placed and set for 3 external rotation based off of the epicondylar axis and Whitesides line. After the femur was sized, the appropriate 4-in-1 cutting block was then pinned in place. The anterior condyles were cut without notching. The posterior and chamfer cuts were performed while protecting the collateral ligaments. The cutting block was then removed, and the femoral canal was plugged with autologous bone. Attention was then directed to the tibia. The remaining ACL was removed with a Ronguer, and the tibia was then gently subluxed forward with a large bent knee retractor. Any remaining menisci was excised. The posterior lateral corner was cauterized in order to cauterize the lateral geniculate artery. The extra medullary tibial cutting guide was then placed, set for the appropriate rotation , slope, and depth of resection. The proximal tibia cutting guide was then pinned in place. Proximal tibia was then cut and sized. Next trials were then placed with the appropriate-sized insert. The knee was able to fully extend and flex to 130 and was stable throughout all range of motion. The knee was then extended, patella everted. Patella was then measured, and then using an osteotomy guide, the patella was cut at the appropriate level. The patella was then measured and drilled and the patella trial was then placed. The knee was then taken through range of motion with the patella trial and the patella tracked normally. The knee was then extended patella trial was then removed and the patella was everted. Knee was then flexed and lug holes were drilled through the femoral trial and the femoral trial was then removed. The tibial was then exposed, and the tibial broach guide was then pinned in place after it was set for the appropriate rotation to allow for the most coverage without overhang. The tibia was then reamed and broached. The cut surfaces of bone were then irrigated with pulsatile lavage. The posterior structures were injected with the ropivacaine solution. The knee was also irrigated with Irrisept solution. The components were then opened, the cement was mixed, and the components were then cemented in place. The cement was allowed to harden with the knee in full extension. While the cement was hardening, the remaining soft tissues were then injected with a ropivacaine solution, which consisted of 246.25 mg of ropivacaine, 0.5 mg of epinephrine, 30 mg of Toradol, 80 g of clonidine, and 48.45 mL of sterile water, for a total of 100 mL of fluid injected. After the cemented hardened. The tourniquet was released, and hemostasis was obtained. A second gram of transexamic acid was given. The knee was again irrigated. The knee was again taken through range of motion and found to be stable throughout all range of motion of 0-130 , and the patella tracked normally. The fascia was then closed with #2 strata fix suture. The subcutaneous tissue was closed with 3-0 Vicryl and 3-0 strata fix. Dermabond tape was used for the skin and placed with the knee in flexion. The patient was placed in a sterile dressing. Patient was then transferred to recovery room in stable condition. The nutrition assistant ANASTACIA Lawton was required due the complexity surgery and the need for a skilled surgical consultant. She assisted in positioning, draping, retraction, and closure of the wound.
[2017-06-13] MEDS ORDERED: hydrOXYzine PAMOATE 25 MG CAP PO PRN (15:42)
[2017-06-13] MEDS ORDERED: NA PHOS,M-B/NA PHOS,DI-BA 133 ML ENEMA RECTAL PRN (15:42)
[2017-06-13] MEDS ORDERED: MAGNESIUM HYDROXIDE 2,400 MG/10 ML CUP PO PRN (15:42)
[2017-06-13] MEDS ORDERED: HYDROmorphone 1 MG/ML 1 ML SYRINGE IVP PRN ×3 (15:42)
[2017-06-13] MEDS ORDERED: DIAZEPAM 5 MG TAB PO PRN ×2 (15:42)
[2017-06-13] MEDS ORDERED: BISACODYL 10 MG SUPP RECTAL PRN (15:42)
[2017-06-13] MEDS ORDERED: ONDANSETRON 4 MG/2 ML VIAL IVP PRN (15:42)
[2017-06-13] MEDS ORDERED: HYDROcodone/APAP 5-325MG 1 EACH TAB PO PRN ×2 (15:42)
[2017-06-13] MEDS ORDERED: NALOXONE 0.4 MG/ML 1 ML VIAL IV PRN (15:42)
--- NOTE | 2017-06-13 16:00 | XR ---
Limited right knee HISTORY: Postop right knee arthroplasty 2 views of the right knee Patient is status post right knee arthroplasty. Lucency in the soft tissues compatible with postop st ate. Alignment is maintained. There are soft tissue calcifications proximal right leg anterior to the tibia likely representing phleboliths. IMPRESSION: Orthopedic follow-up.
[2017-06-13] MEDS: SODIUM CHLORIDE 0.9% 1,000 ML IV SCH (18:26)
[2017-06-13] MEDS ORDERED: SENNOSIDES-DOCUSATE SODIUM 1 EACH TAB PO SCH (21:00)
[2017-06-13] MEDS: ASPIRIN 325 MG TAB PO SCH (21:25)
[2017-06-14] MEDS: ceFAZolin 2 GM in SODIUM CHLORIDE 0.9% 100 ML IVPB SCH ×2 (00:20→08:18)
[2017-06-14 07:11] VITALS: RESP 18
[2017-06-14 07:30] LABS: Basophils % (A) 0 %; CH 27.6; Eosinophils % (A) 0 %; HCT 34.5 % (34.0-46.0); HDW 2.86; HGB 11.3 gm/dL (11.4-16.0); Luc # (Auto) 0.06; Luc % (Auto) 1; Lymphocytes # (A) 0.8 k/uL (1.0-4.8); Lymphocytes % (A) 8 %; MCH 26.8 pg (25.0-35.0); MCHC 32.8 g/dL (31.0-37.0); MCV 81.6 fL (80.0-100.0); Monocytes # (A) 0.4 k/uL (0-1.0); Monocytes % (A) 4 %; Neutrophils # (A) 9.2 k/uL (1.3-7.7); Neutrophils % (A) 87 %; RBC 4.23 m/uL (3.80-5.40); RDW 14.7 % (11.5-15.5); WBC 10.5 k/uL (3.8-10.6); WBC (Perox) 10.99
--- NOTE | 2017-06-14 08:21 | P.DS ---
Providers Date of admission: 06/13/17 11:42 Expected date of discharge: 06/14/17 Attending physician: Mohinder Jung Consults: 06/13/17 15:42 Consult Physician Routine Consulting Provider: Raya Panda Consult Reason/Comments: medical management Do you want consulting provider notified?: Yes Primary care physician: Bita Guzman - Discharge Diagnosis(es) (1) Primary osteoarthritis of right knee Current Visit: Yes Status: Acute (2) Status post right knee replacement Current Visit: Yes Status: Acute Hospital Course: This is a 77-year-old female with known history of degenerative arthritis of the right knee. The patient presents for evaluation. After discussion and consideration patient elects to proceed with total knee arthroplasty. The patient is seen preoperatively by Dr. Jung and cleared for surgery. Patient is admitted to [facility] on 06/13/2017 for total knee arthroplasty. The procedures performed without complication or sequelae. The patient is doing well postoperatively. Labs and vital signs are stable on day of discharge. On day of discharge patient's knee incision is healing well. There is minimal erythema. There is minimal drainage noted at this time. There is minimal soft tissue swelling to the knee. Patient has full foot and ankle motion without difficulty or pain. Neurovascular status to the right lower extremity is intact. Patient is discharged home in good condition. Please see med rec for accurate list of home medications. Plan - Discharge Summary New Discharge Prescriptions: New Aspirin 325 mg PO BID #60 tab HYDROcodone/APAP 5-325MG [[place] 5-325] 1 - 2 tab PO Q4-6H PRN #90 tab PRN Reason: Pain Sennosides-Docusate Sodium [Senokot-S] 1 tab PO BID #60 tablet No Action Triamterene-Hctz 75-50Mg [Maxzide 75-50] 1 tab PO QAM Naproxen Sodium [Aleve] 220 mg PO Q6H PRN PRN Reason: Pain Lisinopril [Zestril] 20 mg PO QAM Levothyroxine Sodium [Synthroid] 112 mcg PO QAM Atorvastatin [Lipitor] 20 mg PO HS Aspirin 325 mg PO HS Acetaminophen [Tylenol] 325 mg PO BID PRN PRN Reason: Pain HYDROcodone/APAP 7.5-325MG [[place] 7.5-325] 1 tab PO Q6HR PRN PRN Reason: Pain Sennosides-Docusate Sodium [Senokot-S] 2 tab PO DAILY PRN PRN Reason: W/ NORCO Discharge Medication List Aspirin 325 mg PO HS 11/02/16 [History] Atorvastatin [Lipitor] 20 mg PO HS 11/02/16 [History] Levothyroxine Sodium [Synthroid] 112 mcg PO QAM 11/02/16 [History] Lisinopril [Zestril] 20 mg PO QAM 11/02/16 [History] Naproxen Sodium [Aleve] 220 mg PO Q6H PRN 11/02/16 [History] Triamterene-Hctz 75-50Mg [Maxzide 75-50] 1 tab PO QAM 11/02/16 [History] Acetaminophen [Tylenol] 325 mg PO BID PRN 02/13/17 [History] HYDROcodone/APAP 7.5-325MG [[place] 7.5-325] 1 tab PO Q6HR PRN 06/01/17 [History] Sennosides-Docusate Sodium [Senokot-S] 2 tab PO DAILY PRN 06/01/17 [History] Aspirin 325 mg PO BID #60 tab 06/14/17 [Rx] HYDROcodone/APAP 5-325MG [[place] 5-325] 1 - 2 tab PO Q4-6H PRN #90 tab 06/14/17 [ Rx] Sennosides-Docusate Sodium [Senokot-S] 1 tab PO BID #60 tablet 06/14/17 [Rx] Follow up Appointment(s)/Referral(s): Mohinder Jung DO [Doctor of Osteopathic Medicine] - 2 Weeks Activity/Diet/Wound Care/Special Instructions: Weightbearing as tolerated with a walker CPM 5-6h daily Daily dressing changes, keep incision clean and dry May shower if no drainage from incision Call [facility] with questions or concerns [phone] Discharge Disposition: HOME WITH HOME HEALTH SERVICES
--- NOTE | 2017-06-14 08:24 | P.PN ---
Progress Note - Text The patient is status post right adductor canal catheter placement. The catheter was placed for postoperative pain control, status post total right arthroplasty. Ropivacaine 0.2% is infusing at 8 mLs per hour. The patient has no complaints of right lower extremity numbness or weakness. Patient's VAS score is 0-1 -10. Assessment: Patient's adductor canal catheter is in place and working appropriately. Plan: continue infusion and adjust it as needed.
[2017-06-14] MEDS: ASPIRIN 325 MG TAB PO SCH (08:50)
[2017-06-14] MEDS ORDERED: MELOXICAM 7.5 MG TAB PO SCH (09:00)
[2017-06-14] MEDS: LACTATED RINGERS 1,000 ML IV SCH (09:35)
[2017-06-14] MEDS: SODIUM CHLORIDE 0.9% 1,000 ML IV SCH (09:35)
[2017-06-14 11:09] VITALS: BP 118/61; PULSE 72; TEMP 97.8
--- NOTE | 2017-06-14 12:20 | P.CONS ---
History of Present Illness - Reason for Consult Consult date: 06/13/17 Recommendations regarding antihypertensive medications - History of Present Illness Patient was admitted for right knee osteoarthritis and right knee orthoplasty and patient is clinically doing well at this point of time. Patient denied any fever, chills, nausea, vomiting, abdominal pain, dysuria patient denied any diarrhea. Did not pass gas yet I evaluated her in her immediate postoperative period and patient is clinically doing well. Review of Systems REVIEW OF SYSTEMS: CONSTITUTIONAL: No fever, no malaise, no fatigue. HEENT: No recent visual problems or hearing problems. Denied any sore throat. CARDIOVASCULAR: No chest pain, orthopnea, PND, no palpitations, no syncope. PULMONARY: No shortness of breath, no cough, no hemoptysis. GASTROINTESTINAL: No diarrhea, no nausea, no vomiting, no abdominal pain. Normoactive bowel sounds. NEUROLOGICAL: No headaches, no weakness, no numbness. HEMATOLOGICAL: Denies any bleeding or petechiae. GENITOURINARY: Denies any burning micturition, frequency, or urgency. MUSCULOSKELETAL/RHEUMATOLOGICAL: Denies any joint pain, swelling, or any muscle pain. ENDOCRINE: Denies any polyuria or polydipsia. The rest of the 14-point review of systems is negative. Past Medical History Past Medical History: Hyperlipidemia, Hypertension, Osteoarthritis (OA), Thyroid Disorder Additional Past Medical History / Comment(s): Wears a wig. STRESS TEST 06/02/17 D /T RECENT EKG CHG. 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 History of Any Multi-Drug Resistant Organisms: None Reported Past Surgical History: Joint Replacement, Orthopedic Surgery, Tonsillectomy Additional Past Surgical History / Comment(s): I & D RIGHT MIDDLE FINGER. Rt Hip Replacement. LT TOTAL KNEE 01/2017. FATTY TUMOR EXC from back, trk 06/13/17 Past Anesthesia/Blood Transfusion Reactions: Motion Sickness Past Psychological History: No Psychological Hx Reported Smoking Status: Never smoker Past Alcohol Use History: Rare Past Drug Use History: None Reported - Past Family History Mother Family Medical History: Cancer Father Family Medical History: Cancer Sister(s) Family Medical History: Cancer Medications and Allergies Home Medications Medication Instructions Recorded Confirmed Type Aspirin 325 mg PO HS 11/02/16 06/13/17 History Atorvastatin [Lipitor] 20 mg PO HS 11/02/16 06/13/17 History Levothyroxine Sodium [Synthroid] 112 mcg PO QAM 11/02/16 06/13/17 History Lisinopril [Zestril] 20 mg PO QAM 11/02/16 06/13/17 History Naproxen Sodium [Aleve] 220 mg PO Q6H PRN 11/02/16 06/13/17 History Triamterene-Hctz 75-50Mg [Maxzide 1 tab PO QAM 11/02/16 06/13/17 History 75-50] Acetaminophen [Tylenol] 325 mg PO BID PRN 02/13/17 06/13/17 History HYDROcodone/APAP 7.5-325MG [[place] 1 tab PO Q6HR PRN 06/01/17 06/13/17 History 7.5-325] Sennosides-Docusate Sodium 2 tab PO DAILY PRN 06/01/17 06/13/17 History [Senokot-S] Aspirin 325 mg PO BID #60 tab 06/14/17 Rx HYDROcodone/APAP 5-325MG [[place] 1 - 2 tab PO Q4-6H PRN #90 tab 06/14/17 Rx 5-325] Sennosides-Docusate Sodium 1 tab PO BID #60 tablet 06/14/17 Rx [Senokot-S] Allergies Allergy/AdvReac Type Severity Reaction Status Date / Time tetanus and diphtheria Allergy Rash/Hives Verified 06/13/17 15:50 toxoids Physical Exam Vitals: Vital Signs Temp Pulse Pulse Pulse Pulse Resp BP 06/14/17 11:08 97.8 F 72 18 06/14/17 07:00 98.5 F 87 18 06/14/17 00:51 98.0 F 82 16 06/14/17 00:00 16 06/13/17 20:00 16 06/13/17 19:15 94 06/13/17 19:00 97.9 F 94 77 16 06/13/17 18:45 91 06/13/17 18:30 94 06/13/17 18:15 87 06/13/17 18:00 85 06/13/17 17:45 87 06/13/17 17:30 97.9 F 85 17 06/13/17 16:20 96 16 06/13/17 16:05 96 16 06/13/17 15:50 97 16 06/13/17 15:35 98 F 101 H 16 06/13/17 12:42 97.4 F L 74 16 137/71 BP BP Pulse Ox 06/14/17 11:08 118/61 97 06/14/17 07:00 123/63 94 L 06/14/17 00:51 127/76 95 06/14/17 00:00 06/13/17 20:00 06/13/17 19:15 117/70 06/13/17 19:00 133/81 95 06/13/17 18:45 124/78 06/13/17 18:30 137/78 06/13/17 18:15 129/79 06/13/17 18:00 133/80 06/13/17 17:45 127/73 06/13/17 17:30 137/88 95 06/13/17 16:20 130/66 93 L 06/13/17 16:05 129/65 98 06/13/17 15:50 127/63 98 06/13/17 15:35 129/63 95 06/13/17 12:42 96 Intake and Output 06/13/17 06/14/17 06/14/17 22:59 06:59 14:59 Intake Total 1160 Output Total 450 Balance 710 Intake: IV 200 Intake, IV Titration 480 Amount Sodium Chloride 0.9% 1, 480 000 ml @ 60 mls/hr IV . [id number] [facility] Rx#:[id number] Oral 480 Output: Urine 400 Estimated Blood Loss 50 Other: Voiding Method Toilet # Voids 1 Weight 94.347 kg PHYSICAL EXAMINATION: GENERAL: The patient is alert and oriented x3, not in any acute distress. Well developed, well nourished. HEENT: Pupils are round and equally reacting to light. EOMI. No scleral icterus. No conjunctival pallor. Normocephalic, atraumatic. No pharyngeal erythema. No thyromegaly. CARDIOVASCULAR: S1 and S2 present. No murmurs, rubs, or gallops. PULMONARY: Chest is clear to auscultation, no wheezing or crackles. ABDOMEN: Soft, nontender, nondistended, normoactive bowel sounds. No palpable organomegaly. MUSCULOSKELETAL: No joint swelling or deformity. EXTREMITIES: No cyanosis, clubbing, or pedal edema. NEUROLOGICAL: Gross neurological examination did not reveal any focal deficits. SKIN: No rashes. Results CBC & Chem 7: 06/14/17 06:58 Labs: Abnormal Lab Results - Last 24 Hours (Table) 06/14/17 Range/Units 06:58 Hgb 11.3 L (11.4-16.0) gm/dL Neutrophils # 9.2 H (1.3-7.7) k/uL Lymphocytes # 0.8 L (1.0-4.8) k/uL Assessment and Plan Plan: #1 right knee arthroplasty: Postoperative to pain management and DVT prophylaxis as per primary service. #2 hypertension: Patient blood pressures well-controlled can hold off lisinopril temporally to avoid perioperative hypotension which is pretty common post surgery. #3 hypothyroidism: Continue levothyroxine. #4 hyperlipidemia continue Lipitor. No further recommendations from surgical perspective
== END 2017-06-14 13:21 | disposition home health service (06) | DRG 470 ==
LOC: 2ORMAIN 11:42 → 3SUR 15:54
PROVIDERS: ADMIT Orthopaedic Surgery; ATTEND Orthopaedic Surgery
PROC: 0SRC0J9 Replacement of Right Knee Joint with Synthetic Substitute, Cemented, Open Approach (ICD-10-PCS; principal; 2017-06-13 14:00)
DX: M17.11 Unilateral primary osteoarthritis, right knee (principal); I10 Essential (primary) hypertension; E78.5 Hyperlipidemia, unspecified; Z79.82 Long term (current) use of aspirin; Z79.899 Other long term (current) drug therapy; Z88.7 Allergy status to serum and vaccine
CPT/HCPCS: 85025; 88300